=== PATIENT | female | born 1975 | race Caucasian/White ===

== ENCOUNTER → 2018-03-11 | Outpatient (CLI) | payer BC | LOC: COL.VAS 03-04 10:00 | DX: Q21.1 Atrial septal defect (principal); I25.3 Aneurysm of heart; I34.1 Nonrheumatic mitral (valve) prolapse | CPT/HCPCS: G0463 ==

== ENCOUNTER → 2019-06-30 | Outpatient (CLI) | payer BC | LOC: MC.RAD 07:25 | DX: R92.2 Inconclusive mammogram (principal) | CPT/HCPCS: G0279 ==

== ENCOUNTER 2024-02-24 07:42 | Emergency (ER) | payer BC ==
[~2024-02-24] VITALS: Ht 167.6 cm; Wt 65.9 kg
[2024-02-24 07:48] VITALS: TEMP 97.8
[2024-02-24] MEDS ORDERED: Acetaminophen 500 MG TAB PO ONE (08:00)
[2024-02-24 08:04] LABS: BASO # 0.1 K/mm3 (0.0-0.2); BASO % 0.8 % (0.0-2.0); EOS # 0.2 K/mm3 (0.0-0.7); EOS % 2.3 % (0.0-4.0); GRAN # 5.1 K/mm3 (1.4-6.5); GRAN % 66.2 % (42.2-75.2); HEMATOCRIT 42.7 % (37.0-47.0); HEMOGLOBIN 13.9 g/dl (12.5-16.0); LYMPH # 1.8 K/mm3 (1.2-3.4); LYMPH % 23.5 % (20.0-51.0); MEAN CELL VOLUME 92 fl (80.0-100.0); MEAN CORPUSCULAR HEMOGLOBIN 30 pg (27-31); MEAN CORPUSCULAR HGB CONC 33 g/dl (33.0-37.0); MONO # 0.6 K/mm3 (0.1-0.6); MONO % 7.1 % (1.7-9.3); PLATELET COUNT 292 K/mm3 (130-400); RED BLOOD COUNT 4.63 M/mm3 (4.10-5.30); REDCELL DISTRIBUTION WIDTH-CV 12.4 % (11.5-14.5)
[2024-02-24 08:21] LABS: ALANINE AMINOTRANSFERASE 9 U/L (0-55); ALBUMIN 4.5 g/dL (3.5-5.0); ALKALINE PHOSPHATASE 58 U/L (40-150); ANION GAP 11 mmol/L (7-16); AST,SGOT 14 U/L (5-34); BLOOD UREA NITROGEN 11 mg/dL (7-19); CALCIUM 9.9 mg/dL (8.4-10.2); CHLORIDE 104 mEq/L (98-107); CREATININE, serum 0.92 mg/dL (0.57-1.11); GLUCOSE 98 mg/dL (70-99); POTASSIUM 4.1 mEq/L (3.5-4.5); SODIUM 142 mEq/L (136-145); TOTAL PROTEIN 7.4 g/dl (6.2-8.1)
[2024-02-24 08:27] LABS: TROPONIN-I < 0.010 ng/mL (0.00-0.033)
[2024-02-24 11:49] VITALS: BP 116/59; PULSE 71
== END 2024-02-24 11:45 | disposition home or self-care (01) ==
LOC: COL.ER 07:42
PROVIDERS: Emergency Medicine
DX: R07.89 Other chest pain (principal)